=== PATIENT | female | born 1965 | race African-American/Black ===

== ENCOUNTER 2018-11-19 12:07 | Emergency (ER) | payer MEDICAID, OTHER ==
[2018-11-19] MEDS: DIPHENHYDRAMINE 50 MG CAP PO (12:44)
[2018-11-19] MEDS: FAMOTIDINE 20 MG TAB PO (12:44)
[2018-11-19] MEDS: DEXAMETHASONE 10 MG/ML 1 ML INJ IM (12:44)
== END 2018-11-19 12:56 | disposition home or self-care (01) ==
LOC: FTE 12:56
DX: H02.846 Edema of left eye, unspecified eyelid (principal); H02.843 Edema of right eye, unspecified eyelid; J45.909 Unspecified asthma, uncomplicated
CPT/HCPCS: 96372; 99284-25; J1100